=== PATIENT | male | born 1970 | race Two or more races ===

== ENCOUNTER 2016-09-06 20:09 | Emergency (ER) | payer SELFPAY ==
[~2016-09-06] VITALS: Ht 185.4 cm; Wt 95.3 kg
[~2016-09-06 20:09] MED LIST: TRAM50TA2
[2016-09-06 20:34] VITALS: BP 157/108
[2016-09-07] MEDS ORDERED: IBUPROFEN 600 MG TAB PO ONE (01:30)
[2016-09-07] MEDS ORDERED: CYCLOBENZAPRINE HCL 10 MG TAB PO ONE (01:30)
== END 2016-09-07 01:35 | disposition home or self-care (01) ==
LOC: ER 20:09
DX: M54.5 Low back pain (principal); I10 Essential (primary) hypertension; Z76.0 Encounter for issue of repeat prescription; F17.210 Nicotine dependence, cigarettes, uncomplicated

== ENCOUNTER 2016-09-12 15:53 | Emergency (ER) | payer SELFPAY ==
[~2016-09-12] VITALS: Ht 185.4 cm; Wt 95.3 kg
[2016-09-12 16:53] VITALS: BP 148/99
== END 2016-09-12 18:37 | disposition home or self-care (01) ==
LOC: ER 15:58
DX: S86.812A Strain of other muscle(s) and tendon(s) at lower leg level, left leg, initial encounter (principal); I10 Essential (primary) hypertension; F10.10 Alcohol abuse, uncomplicated; F17.210 Nicotine dependence, cigarettes, uncomplicated; M19.90 Unspecified osteoarthritis, unspecified site; M54.9 Dorsalgia, unspecified; G89.29 Other chronic pain; X58.XXXA Exposure to other specified factors, initial encounter; Y93.39 Activity, other involving climbing, rappelling and jumping off; Y99.8 Other external cause status; Y92.89 Other specified places as the place of occurrence of the external cause

== ENCOUNTER 2016-12-31 00:09 | Emergency (ER) | payer SELFPAY ==
[~2016-12-31] VITALS: Ht 182.9 cm; Wt 92.5 kg
[2016-12-31 00:20] VITALS: BP 154/103
[2016-12-31 00:55] LABS: Basophils # (auto) 0.1 uL; Basophils % (auto) 0.7 % (0.0-2.0); Eosinophils # (auto) 0.1 uL; Eosinophils % (auto) 0.7 % (0.0-7.0); Hematocrit 44.9 % (41.0-53.0); Hemoglobin 14.7 g/dL (13.5-17.5); Lymphocytes # (auto) 2.1 uL; Lymphocytes % (auto) 17.6 % (10.0-50.0); Mean Corpuscular Hemoglobin 31.1 pg (28.0-32.0); Mean Corpuscular Hgb Conc. 32.8 g/dL (32.0-36.0); Mean Corpuscular Volume 94.9 fL (80.0-100.0); Mean Platelet Volume 7.6 fL (7.4-10.4); Monocytes # (auto) 0.8 uL; Monocytes % (auto) 6.4 % (0.0-12.0); Neutrophils % (auto) 74.6 % (37.0-80.0); Platelet Count (auto) 412 10^3/uL (140-450); Red Cell Distribution Width 12.1 % (11.6-16.0); White Blood Cell 12.1 10^3/uL (4.4-10.8)
[2016-12-31 01:50] LABS: Albumin 3.5 g/dL (3.4-5.0); BUN/Creatinine Ratio 16.8; Calcium 8.4 mg/dL (8.5-10.1); Potassium 3.6 mmol/L (3.5-5.1)
[2016-12-31 01:53] LABS: Bilirubin, Total 0.7 mg/dL (0.2-1.0); Total Protein 8.8 g/dL (6.4-8.2)
== END 2016-12-31 01:20 | disposition left against medical advice (07) ==
LOC: ER 00:12
DX: T81.4XXA Infection following a procedure, initial encounter (principal); Z48.01 Encounter for change or removal of surgical wound dressing; Z53.21 Procedure and treatment not carried out due to patient leaving prior to being seen by health care provider
CPT/HCPCS: 36415; 80053; 80307; 80320; 85025

== ENCOUNTER 2017-01-02 20:23 | Emergency (ER) | payer MEDICAID ==
[~2017-01-02] VITALS: Ht 185.4 cm; Wt 90.7 kg
[2017-01-02 21:06] LABS: Basophils # (auto) 0 uL; Basophils % (auto) 0.5 % (0.0-2.0); CONDITION Y; Eosinophils # (auto) 0.3 uL; Eosinophils % (auto) 3.6 % (0.0-7.0); Hematocrit 40.2 % (41.0-53.0); Hemoglobin 13.5 g/dL (13.5-17.5); Lymphocytes # (auto) 2.1 uL; Lymphocytes % (auto) 24.8 % (10.0-50.0); Mean Corpuscular Hemoglobin 31.9 pg (28.0-32.0); Mean Corpuscular Hgb Conc. 33.7 g/dL (32.0-36.0); Mean Corpuscular Volume 94.6 fL (80.0-100.0); Mean Platelet Volume 7.9 fL (7.4-10.4); Monocytes # (auto) 0.6 uL; Monocytes % (auto) 6.8 % (0.0-12.0); Neutrophils # (auto) 5.4 uL; Neutrophils % (auto) 64.3 % (37.0-80.0); Platelet Count (auto) 364 10^3/uL (140-450); Red Cell Distribution Width 13.2 % (11.6-16.0); White Blood Cell 8.5 10^3/uL (4.4-10.8)
[2017-01-02 21:29] LABS: Albumin 3.2 g/dL (3.4-5.0); Calcium 8.5 mg/dL (8.5-10.1); Potassium 3.6 mmol/L (3.5-5.1)
[2017-01-02 21:32] LABS: BUN/Creatinine Ratio 14.4
[2017-01-02 21:35] LABS: Bilirubin, Total 0.3 mg/dL (0.2-1.0); Total Protein 7.9 g/dL (6.4-8.2)
[2017-01-02 22:26] VITALS: BP 127/94
[2017-01-02] MEDS ORDERED: NEOMYCIN-BACITRACIN-POLYM UNITDOSE PKG TOP OINT TOP ONE (22:45)
[2017-01-02] MEDS ORDERED: cefTRIAXone SOD 1,000 MG VL IM ONE (22:45)
== END 2017-01-02 23:18 | disposition home or self-care (01) ==
LOC: ER 20:27
DX: L03.116 Cellulitis of left lower limb (principal); T81.4XXD Infection following a procedure, subsequent encounter; I10 Essential (primary) hypertension; F17.210 Nicotine dependence, cigarettes, uncomplicated
CPT/HCPCS: 36415; 80053; 85025; 87205; 96372; 99284; J0696; 87077; 87186

== ENCOUNTER 2017-01-04 17:35 | Emergency (ER) | payer SELFPAY ==
[~2017-01-04] VITALS: Ht 185.4 cm; Wt 108.9 kg
[2017-01-04 20:04] VITALS: BP 129/90
[2017-01-04] MEDS ORDERED: NEOMYCIN-BACITRACIN-POLYM UNITDOSE PKG TOP OINT TOP ONE (21:03)
[2017-01-04] MEDS ORDERED: cefTRIAXone SOD 1,000 MG VL ONE (21:10)
== END 2017-01-04 21:27 | disposition home or self-care (01) ==
LOC: ER 17:36
DX: L03.116 Cellulitis of left lower limb (principal); I10 Essential (primary) hypertension; F17.210 Nicotine dependence, cigarettes, uncomplicated
CPT/HCPCS: 96372; 99283; J0696